=== PATIENT | male | born 1955 | race Caucasian/White ===

== ENCOUNTER 2017-04-07 16:39 | Emergency (ER) | payer OTHER ==
[~2017-04-07] VITALS: Ht 177.8 cm; Wt 102.1 kg
[~2017-04-07 16:39] MED LIST: ACETAMINOPHEN-H1 TA2 PO; CHOLESTEROL MED; FLOMAX0.4 MG PO; LISINOPRIL5 MG PO; METOPROLOL SR50 MG PO; PLAVIX75 MG PO; PRILOSEC20 MG PO; SEPTRA DS 800 M1 TAB PO; TAMIFLU75 MG PO; ZOFRAN ODT4 MG SL
[2017-04-07] MEDS ORDERED: CEPHALEXIN500 M1 PO (18:28)
== END 2017-04-07 18:35 | disposition home or self-care (01) ==
LOC: ED 16:39
DX: S61.217A Laceration without foreign body of left little finger without damage to nail, initial encounter (principal); F17.200 Nicotine dependence, unspecified, uncomplicated; Z79.899 Other long term (current) drug therapy; W22.8XXA Striking against or struck by other objects, initial encounter; Y93.89 Activity, other specified; Y92.89 Other specified places as the place of occurrence of the external cause; Y99.8 Other external cause status

== ENCOUNTER → 2017-09-28 | Outpatient (CLI) | payer OTHER ==
[~2017-09-28] MED LIST changes: +CEPHALEXIN500 M1 PO
[2017-09-28 12:53] LABS: BUN 23 mg/dl (7-24); CHLORIDE 106 mmol/L (98-107); CHOLESTEROL 127 mg/dL (<200); CREATININE 1.07 mg/dL (0.70-1.30); HDL CHOLESTEROL 39 mg/dl (40-60); LDL CHOLESTEROL 57 mg/dL (9-159); POTASSIUM 4.3 mmol/L (3.5-5.1); SGOT/AST 18 IU/L (3-35); SGPT/ALT 36 U/L (12-78); SODIUM 142 mmol/L (136-145); TRIGLYCERIDES 153 mg/dl (<150); VLDL CHOLESTEROL 31 mg/dL (6-40)
== END | disposition home or self-care (01) ==
LOC: LAB 12:08
PROVIDERS: Internal Medicine Cardiovascular Disease
DX: I25.10 Atherosclerotic heart disease of native coronary artery without angina pectoris (principal); I25.2 Old myocardial infarction; I10 Essential (primary) hypertension

== ENCOUNTER → 2018-01-29 | Outpatient (CLI) | payer OTHER | END | disposition home or self-care (01) | LOC: RAD 11:03 | DX: J43.9 Emphysema, unspecified (principal); R06.2 Wheezing; I10 Essential (primary) hypertension ==

== ENCOUNTER → 2019-04-23 | Outpatient (CLI) | payer OTHER | END | disposition home or self-care (01) | LOC: US 10:47 | DX: N40.0 Benign prostatic hyperplasia without lower urinary tract symptoms (principal) ==